=== PATIENT | male | born 1970 | race Caucasian/White ===

== ENCOUNTER 2024-04-16 09:36 | Day surgery (SDC) | payer OTHER ==
[~2024-04-16 09:36] MED LIST: LIDOCAINE 1% (10MG/ML) FOR IV START INTRADERMA PRN; ONDANSETRON 4 MG/2 ML VIAL IVP PRN
[2024-04-16 10:32] VITALS: TEMP 98
[2024-04-16] MEDS: IV FLUID CONTINUATION 1,000 ML IV ONE (10:36)
[2024-04-16] MEDS: LACTATED RINGERS 1,000 ML IV SCH (10:36)
[2024-04-16] MEDS ORDERED: PROPOFOL 10 MG/ML 20 ML VIAL IV ONE (11:28)
[2024-04-16] MEDS ORDERED: LIDOCAINE 1% INJ 10MG/ML (20 ML MDV) ONE (11:28)
--- NOTE | 2024-04-16 11:33 | P.PCN ---
Date of Procedure: 04/16/24 Procedure(s) Performed: BRIEF HISTORY: Patient is a 53-year-old, pleasant, white male scheduled for an upper endoscopy as a part evaluation of GERD/epigastric pain and intermittent black tarry stools.. PROCEDURE PERFORMED: Esophagogastroduodenoscopy with biopsy. PREOPERATIVE DIAGNOSIS: GERD/epigastric pain and melena. IV sedation per anesthesia. PROCEDURE: After informed consent was obtained, the patient was brought into the endoscopy unit. IV sedation was administered by Anesthesia under continuous monitoring. Initially the Olympus GIF-140 video endoscope was inserted into the mouth. Esophagus intubated without any difficulty. It was gradually advanced into the stomach and duodenum and carefully examined. The bulb and the second part of the duodenum appeared normal. The scope at this time was withdrawn to the stomach, adequately insufflated with air, and upon careful examination, mucosa of the antrum, mild gastritis and biopsies were done for this area. Body, cardia and the fundus appeared normal. The scope was then withdrawn into the esophagus. The GE junction was located at 39 cm from the incisors. Small hiatal hernia noted. There were linear erosions of the distal esophagus consistent with LA grade B reflux esophagitis. Rest of the esophagus appeared normal and the patient tolerated the procedure well. IMPRESSION: 1. Linear erosions in the distal esophagus consistent with LA grade B reflux esophagitis. 2. Small hiatal hernia. 3. Mild antral gastritis RECOMMENDATIONS: The findings of this examination were discussed with the patient as well as his family. Follow-up with biopsy results. He was advised to continue on omeprazole 20 mg daily and follow antireflux measures..
[2024-04-16 11:52] VITALS: BP 146/89; PULSE 82; RESP 18
== END 2024-04-16 12:19 | disposition home or self-care (01) ==
LOC: ORWHC2ENDO 09:36
PROVIDERS: ATTEND Internal Medicine Gastroenterology
CPT/HCPCS: 43239; 88305